=== PATIENT | male | born 2000 | race Caucasian/White ===

== ENCOUNTER 2021-01-24 14:22 | Emergency (ER) | payer OTHER ==
[~2021-01-24] VITALS: Ht 180.3 cm; Wt 81.6 kg
[2021-01-24] MEDS ORDERED: AMOX-CLAV 875-1 EACH PO (16:26)
== END 2021-01-24 17:44 | disposition home or self-care (01) ==
LOC: ER 14:22
DX: J03.80 Acute tonsillitis due to other specified organisms (principal)

== ENCOUNTER 2022-01-03 15:10 | Emergency (ER) | payer OTHER ==
[~2022-01-03] VITALS: Ht 180.3 cm; Wt 80.3 kg
[~2022-01-03 15:10] MED LIST: AMOX-CLAV 875-1 EACH PO
== END 2022-01-03 18:07 | disposition home or self-care (01) ==
LOC: ER 15:10
DX: S05.12XA Contusion of eyeball and orbital tissues, left eye, initial encounter (principal); W22.8XXA Striking against or struck by other objects, initial encounter; Y93.9 Activity, unspecified; Y92.810 Car as the place of occurrence of the external cause